=== PATIENT | male | born 1990 | race Caucasian/White ===

== ENCOUNTER 2019-10-03 13:50 | Emergency (ER) | payer SELFPAY ==
[2019-10-03] MEDS ORDERED: Lidocaine 1% with EPINEPHrine 1:100,000 50 ML MDV SUBCUT STA (14:12)
[2019-10-03] MEDS ORDERED: Bacitracin Oint 1 GM U/D Packet TOP ONE (14:13)
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
== END 2019-10-03 15:03 | disposition home or self-care (01) ==
LOC: JP.ED 13:50
DX: S06.0X0A Concussion without loss of consciousness, initial encounter (principal); S01.112A Laceration without foreign body of left eyelid and periocular area, initial encounter; S50.812A Abrasion of left forearm, initial encounter; Z88.0 Allergy status to penicillin; Z88.2 Allergy status to sulfonamides; V86.59XA Driver of other special all-terrain or other off-road motor vehicle injured in nontraffic accident, initial encounter
CPT/HCPCS: 12011; 99283

== ENCOUNTER 2020-09-27 09:32 | Emergency (ER) | payer MEDICAID ==
--- NOTE | 2020-09-27 10:20 | EDM.PDOC ---
<Lola Jade - Last Filed: 09/27/20 12:45> ED HPI GENERAL MEDICAL PROBLEM - General Chief Complaint: Gastrointestinal Problem Stated Complaint: COUGHING UP BLOOD,STMACH PAIN Time Seen by Provider: 09/27/20 10:00 Source of Information: Reports: Patient History Limitations: Reports: No Limitations - History of Present Illness INITIAL COMMENTS - FREE TEXT/NARRATIVE: 29 year old male presents from home due to stabbing abdominal pain located at his umbilicus. He reports a 5 year history of intermittant episode of similar symptoms but the abdominal pain this time, seems to be worse. Last time he was evaluated (1 month ago) was told that he had some "intestinal swelling" but no other abnormalities. This time, the pain started last night around 1999 with an episode of vomiting. He reports that he has vomited a "countless" number of times since onset and has been dry heaving here in the ER. He reports small amounts of streaky delicia red blood in his emesis starting this am. He reports associated symptoms of tingling in his toes and finger tips bilaterally and the urge to have a bowel movement frequently with small stool production. He is afebrile, and has not had any previous abdominal surgeries. Reports smoking marijuana 2 days ago without other drug or alcohol use. Onset: Sudden Onset Date: 09/26/20 Duration: Hour(s): (started vomiting last night at 1999) Location: Reports: Abdomen, Generalized Quality: Reports: Ache, Stabbing Severity: Severe Improves with: Reports: None Worsens with: Reports: Eating, Movement Associated Symptoms: Reports: Other (tingling in bilateral hands and feet, feeling the urge to have multiple bowel movements with little result each time. ) - Related Data Allergies Allergy/AdvReac Type Severity Reaction Status Date / Time Penicillins Allergy Edema Verified 10/03/19 14:13 Sulfa (Sulfonamide Allergy Edema Verified 10/03/19 14:13 Antibiotics) Home Meds: Home Meds Doxycycline [Vibramycin] 100 mg PO BID 10/03/19 [History] Past Medical History - Past Health History Medical/Surgical History: Denies Medical/Surgical History ED ROS GENERAL - Review of Systems Review Of Systems: See Below Constitutional: Reports: No Symptoms. Denies: Fever, Chills, Malaise, Weakness HEENT: Reports: No Symptoms Respiratory: Reports: No Symptoms. Denies: Shortness of Breath, Wheezing, Pleuritic Chest Pain, Cough Cardiovascular: Reports: No Symptoms. Denies: Chest Pain, Lightheadedness, Palpitations Endocrine: Reports: No Symptoms GI/Abdominal: Reports: Abdominal Pain, Hematemesis, Nausea, Vomiting : Reports: No Symptoms. Denies: Dysuria, Flank Pain Musculoskeletal: Reports: No Symptoms Skin: Reports: No Symptoms Neurological: Reports: Tingling, Other (bilateral finger tip and toe tingling. ). Denies: Confusion, Dizziness, Headache Psychiatric: Reports: No Symptoms Hematologic/Lymphatic: Reports: No Symptoms Immunologic: Reports: No Symptoms ED EXAM, GI/ABD - Physical Exam Text/Narrative:: Jasvir is resting on the cart face down with blanket cover head. When walking into the room patient moaning repetitively "help me, help me, help me". Patient continues to moan throughout assessment, speaking with blanket covering face. He is alert and oriented, skin is warm and dry, his respirations are regular and non labored. Abdominal tenderness with palpation through out entirety of abdomen with the most pain at his umbilicus. Sharp and 10/10. There is no abdominal distension, guarding, rigidity. His lungs are clear throughout. No pedal edema, injuries, or other skin abnormalities. Exam Limited By: No Limitations General Appearance: Alert, WD/WN Ears: Normal External Exam Nose: Normal Inspection, No Blood Throat/Mouth: Normal Inspection, No Airway Compromise Head: Atraumatic Neck: Normal Inspection, Non-Tender Respiratory/Chest: No Respiratory Distress, Lungs Clear, Normal Breath Sounds. No: Respiratory Distress, Wheezing Cardiovascular: Normal Peripheral Pulses, Regular Rate, Rhythm, No Edema GI/Abdominal Exam: Soft, No Distention, Tender. No: Guarding, Rigid, Rebound (Male) Exam: Deferred Rectal (Males) Exam: Deferred Back Exam: Normal Inspection, Full Range of Motion Extremities: Normal Inspection, Normal Range of Motion, Non-Tender Neurological: Alert, Oriented, Normal Cognition. No: Disoriented, Slow to Respond, Unresponsive Psychiatric: Normal Affect, Normal Mood Skin Exam: Warm, Dry, Intact, Normal Color, No Rash. No: Ecchymosis, Erythema, Increased Warmth Lymphatic: No Adenopathy Course - Vital Signs Text/Narrative:: Discussed with patient the cause of his tingling to his toes and fingertips is due to his hyperventilation and dry heaving. CBC, CMP, Lipase, IV, Saline bolus, Zofran, dilaudid and ativan ordered. Patient agrees with plan of care at this time. - Re-Assessments/Exams Free Text/Narrative Re-Assessment/Exam: 09/27/20 12:43 Patient reports that he is feeling better after medication intervention. Requesting discharge with zofran at this time. Departure - Departure Disposition: Home, Self-Care 01 Condition: Good Clinical Impression: Vomiting - Discharge Information Instructions: Nausea and Vomiting, Adult, [id number] Referrals: Sandra Soriano DO [Primary Care Provider] - Forms: ED Department Discharge Additional Instructions: We did some lab work to check for infection, electrolyte abnormalities, liver function, kidney function, and pancreas. They all came back looking ok. Please return home and try to stay well hydrated, taking small frequent sips of clear liquid and increase diet as you tolerate. If you develop a fever, bloody stools, increased abdominal pain, uncontrolled vomiting despite zofran use, or other concerning symptoms, please return for evaluation. <Colton Orozco - Last Filed: 09/27/20 18:45> ED EXAM, GI/ABD - Physical Exam Exam: See Below Course - Vital Signs Last Recorded V/S: Last Vital Signs Temp 98 F 09/27/20 10:58 Pulse 44 L 09/27/20 12:57 Resp 16 09/27/20 10:58 BP 108/60 09/27/20 12:57 Pulse Ox 94 L 09/27/20 11:44 - Orders/Labs/Meds Orders: Active Orders 24 hr Category Date Time Status Saline Lock Insert [OM.PC] Routine Oth 09/27/20 10:24 Ordered Labs: Laboratory Tests 09/27/20 09/27/20 09/27/20 Range/Units 10:50 10:50 10:50 WBC 20.0 H (4.5-11.0) K/uL RBC 5.53 (4.30-5.90) M/uL Hgb 17.0 H (12.0-15.0) g/dL Hct 50.0 (40.0-54.0) % MCV 90 (80-98) fL MCH 31 (27-31) pg MCHC 34 (32-36) % Plt Count 296 (150-400) K/uL Neut % (Auto) 87.2 H (36-66) % Lymph % (Auto) 4.3 L (24-44) % [place] % (Auto) 8.3 H (2-6) % Eos % (Auto) 0.1 L (2-4) % Baso % (Auto) 0.1 (0-1) % Sodium 140 (140-148) mmol/L Potassium 3.3 L (3.6-5.2) mmol/L Chloride 100 (100-108) mmol/L Carbon Dioxide 23 (21-32) mmol/L Anion Gap 20.3 H (5.0-14.0) mmol/L BUN 16 (7-18) mg/dL Creatinine 1.4 H (0.8-1.3) mg/dL Est Cr Clr Drug Dosing TNP Estimated GFR (MDRD) 59 L (>60) Glucose 139 H (74-106) mg/dL Calcium 10.1 (8.5-10.1) mg/dL Total Bilirubin 1.3 H (0.2-1.0) mg/dL AST 16 (15-37) U/L ALT 26 (12-78) U/L Alkaline Phosphatase 85 (46-116) U/L Total Protein 8.0 (6.4-8.2) g/dL Albumin 4.7 (3.4-5.0) g/dL Globulin 3.3 (2.3-3.5) g/dL Albumin/Globulin Ratio 1.4 (1.2-2.2) Lipase 82 (73-393) U/L Urine Color (YELLOW) Urine Appearance (CLEAR) Urine pH (5.0-8.0) Ur Specific [place] (1.008-1.030) Urine Protein (NEGATIVE) mg/dL Urine Glucose (UA) (NEGATIVE) mg/dL Urine Ketones (NEGATIVE) mg/dL Urine Occult Blood (NEGATIVE) Urine Nitrite (NEGATIVE) Urine Bilirubin (NEGATIVE) Urine Urobilinogen (0.2-1.0) EU/dL Ur Leukocyte Esterase (NEGATIVE) Urine RBC (0-5) Urine WBC (0-5) Ur Epithelial Cells Amorphous Sediment Urine Bacteria Urine Mucus Urine Opiates Screen (NEGATIVE) Ur Oxycodone Screen (NEGATIVE) Urine Methadone Screen (NEGATIVE) Ur Propoxyphene Screen (NEGATIVE) Ur Barbiturates Screen (NEGATIVE) Ur Tricyclics Screen (NEGATIVE) Ur Phencyclidine Scrn (NEGATIVE) Ur Amphetamine Screen (NEGATIVE) U Methamphetamines Scrn (NEGATIVE) Urine MDMA Screen (NEGATIVE) U Benzodiazepines Scrn (NEGATIVE) U Cocaine Metab Screen (NEGATIVE) U Marijuana (THC) Screen (NEGATIVE) 09/27/20 09/27/20 Range/Units 12:40 12:40 WBC (4.5-11.0) K/uL RBC (4.30-5.90) M/uL Hgb (12.0-15.0) g/dL Hct (40.0-54.0) % MCV (80-98) fL MCH (27-31) pg MCHC (32-36) % Plt Count (150-400) K/uL Neut % (Auto) (36-66) % Lymph % (Auto) (24-44) % [place] % (Auto) (2-6) % Eos % (Auto) (2-4) % Baso % (Auto) (0-1) % Sodium (140-148) mmol/L Potassium (3.6-5.2) mmol/L Chloride (100-108) mmol/L Carbon Dioxide (21-32) mmol/L Anion Gap (5.0-14.0) mmol/L BUN (7-18) mg/dL Creatinine (0.8-1.3) mg/dL Est Cr Clr Drug Dosing Estimated GFR (MDRD) (>60) Glucose (74-106) mg/dL Calcium (8.5-10.1) mg/dL Total Bilirubin (0.2-1.0) mg/dL AST (15-37) U/L ALT (12-78) U/L Alkaline Phosphatase (46-116) U/L Total Protein (6.4-8.2) g/dL Albumin (3.4-5.0) g/dL Globulin (2.3-3.5) g/dL Albumin/Globulin Ratio (1.2-2.2) Lipase (73-393) U/L Urine Color Yellow (YELLOW) Urine Appearance Slightly cloudy A (CLEAR) Urine pH >= 9.0 H (5.0-8.0) Ur Specific [place] 1.015 (1.008-1.030) Urine Protein 100 H (NEGATIVE) mg/dL Urine Glucose (UA) Negative (NEGATIVE) mg/dL Urine Ketones >=160 H (NEGATIVE) mg/dL Urine Occult Blood Negative (NEGATIVE) Urine Nitrite Negative (NEGATIVE) Urine Bilirubin Negative (NEGATIVE) Urine Urobilinogen 0.2 (0.2-1.0) EU/dL Ur Leukocyte Esterase Negative (NEGATIVE) Urine RBC 0-5 (0-5) Urine WBC 0-5 (0-5) Ur Epithelial Cells Not seen Amorphous Sediment Not seen Urine Bacteria Not seen Urine Mucus Many Urine Opiates Screen Presumptive positive H (NEGATIVE) Ur Oxycodone Screen Negative (NEGATIVE) Urine Methadone Screen Negative (NEGATIVE) Ur Propoxyphene Screen Negative (NEGATIVE) Ur Barbiturates Screen Negative (NEGATIVE) Ur Tricyclics Screen Negative (NEGATIVE) Ur Phencyclidine Scrn Negative (NEGATIVE) Ur Amphetamine Screen Negative (NEGATIVE) U Methamphetamines Scrn Negative (NEGATIVE) Urine MDMA Screen Negative (NEGATIVE) U Benzodiazepines Scrn Presumptive positive H (NEGATIVE) U Cocaine Metab Screen Negative (NEGATIVE) U Marijuana (THC) Screen Presumptive positive H (NEGATIVE) Meds: Medications Discontinued Medications Generic Name Dose Route Start Last Admin Trade Name Freq PRN Reason Stop Dose Admin Hydromorphone HCl 1 mg 09/27/20 10:22 09/27/20 10:43 Hydromorphone 1 Mg/Ml Syringe IVPUSH 09/27/20 10:23 1 mg ONETIME ONE Administration Sodium Chloride 1,000 mls @ 999 mls/hr 09/27/20 10:30 09/27/20 10:37 Normal Saline IV 999 mls/hr ASDIRECTED PARRISH Administration Lorazepam 1 mg 09/27/20 10:22 09/27/20 10:43 Lorazepam 2 Mg/Ml Sdv IVPUSH 09/27/20 10:23 1 mg ONETIME ONE Administration Ondansetron HCl 4 mg 09/27/20 10:22 09/27/20 10:44 Ondansetron 4 Mg/2 Ml Sdv IVPUSH 09/27/20 10:23 4 mg ONETIME ONE Administration Departure - Departure Time of Disposition: 13:57 Sepsis Event Note (ED) - Focused Exam Vital Signs: Vital Signs Temp Pulse Resp BP Pulse Ox 09/27/20 12:57 44 L 108/60 09/27/20 11:44 47 L 123/66 94 L 09/27/20 10:58 98 F 44 L 16 141/76 H 99 09/27/20 10:56 98 F 44 L 16 141/76 H 99 Attestation - Student - Attestation Statement Attestation Statement: I personally performed or re-performed the physical examination and medical decision making. I have verified all student documentation or findings, including history, physical exam and/or medical decision making.
[2020-09-27] MEDS ORDERED: LORazepam 2 MG/ML SDV IVPUSH ONE (10:22)
[2020-09-27] MEDS ORDERED: HYDROmorphone 1 MG/ML Syringe IVPUSH ONE (10:22)
[2020-09-27] MEDS ORDERED: Ondansetron 4 MG/2 ML SDV IVPUSH ONE (10:22)
[2020-09-27] MEDS ORDERED: Sodium Chloride 0.9% 1,000 ML IV SCH (10:30)
== END 2020-09-27 13:57 | disposition home or self-care (01) ==
LOC: JP.ED 09:32
DX: R11.2 Nausea with vomiting, unspecified (principal); R10.9 Unspecified abdominal pain; R20.2 Paresthesia of skin; R06.4 Hyperventilation
CPT/HCPCS: 36415; 80053; 80305; 81001; 83690; 85025; 96374; 96375; 99284; J1170; J2060; J2405; J7030

== ENCOUNTER 2020-10-05 11:00 | Emergency (ER) | payer MEDICAID | END 2020-10-05 11:15 | disposition left against medical advice (07) | LOC: JP.ED 11:00 | DX: Z53.21 Procedure and treatment not carried out due to patient leaving prior to being seen by health care provider (principal) ==

== ENCOUNTER 2023-04-03 08:14 | Day surgery (SDC) | payer MEDICAID ==
[2023-04-03] MEDS: Lactated Ringers 1,000 ML IV SCH (09:05)
[2023-04-03] MEDS ORDERED: Propofol 200 MG/20 ML SDV ONE (10:29)
[2023-04-03] MEDS ORDERED: fentaNYL 100 MCG/2 ML SDV ONE (10:29)
[2023-04-03] MEDS ORDERED: Midazolam 1 MG/ML 2 ML SDV ONE (10:29)
== END 2023-04-03 13:56 | disposition home or self-care (01) ==
LOC: JP.SDS 08:14
PROVIDERS: ATTEND Student in an Organized Health Care Education/Training Program
DX: K21.9 Gastro-esophageal reflux disease without esophagitis (principal); K20.90 Esophagitis, unspecified without bleeding; Z87.19 Personal history of other diseases of the digestive system
CPT/HCPCS: 43239; 88305; J2250; J2704; J3010; J7120